=== PATIENT | male | born 1955 | race Caucasian/White ===

== ENCOUNTER 2017-06-06 02:03 | Emergency (ER) | payer MEDICARE ==
[~2017-06-06] VITALS: Ht 182.9 cm; Wt 174.5 kg
[~2017-06-06 02:03] MED LIST: ALLO100T30 PO; AMOX1TAB64 PO; CAPT50TA3 PO; DIAZ5TAB PO; ENOX40SY4 SQ; FURO40TA6 PO; GABA600T2 PO; HYDR-3240 PO; LISI40TA PO; OMEP-110 PO; OXYC-307 PO; POTA20TA14 PO; WARF2.5T73 PO; WARF5TAB PO; WARF7.5T6 PO
[2017-06-06] MEDS ORDERED: NAPR220C2 PO (02:46)
[2017-06-06] MEDS ORDERED: CHON400C PO (02:46)
[2017-06-06] MEDS ORDERED: VITA1CAP PO (02:46)
[2017-06-06] MEDS ORDERED: FENTANYL PF 100 MCG/2ML ONE (04:25)
[2017-06-06] MEDS ORDERED: FENTANYL PF 100 MCG/2ML IVPush ONE (04:30)
[2017-06-06 05:37] VITALS: BP 124/78
== END 2017-06-06 05:39 | disposition home or self-care (01) ==
LOC: ED 03:49
DX: S02.2XXA Fracture of nasal bones, initial encounter for closed fracture (principal); S16.1XXA Strain of muscle, fascia and tendon at neck level, initial encounter; S39.012A Strain of muscle, fascia and tendon of lower back, initial encounter; I10 Essential (primary) hypertension; E66.01 Morbid (severe) obesity due to excess calories; G35 Multiple sclerosis; W01.0XXA Fall on same level from slipping, tripping and stumbling without subsequent striking against object, initial encounter; Y93.89 Activity, other specified; Y92.098 Other place in other non-institutional residence as the place of occurrence of the external cause; Y99.8 Other external cause status; Z87.828 Personal history of other (healed) physical injury and trauma; Z79.01 Long term (current) use of anticoagulants; Z98.890 Other specified postprocedural states; Z86.718 Personal history of other venous thrombosis and embolism; Z68.43 Body mass index [BMI] 50.0-59.9, adult
CPT/HCPCS: 70450; 70486; 72125; 72131; 99284

== ENCOUNTER 2018-11-18 12:13 | Outpatient (CLI) | payer MEDICARE | END 2018-11-18 23:59 | disposition home or self-care (01) | LOC: RAD 12:13 | PROVIDERS: ATTEND Neurological Surgery | DX: M48.061 Spinal stenosis, lumbar region without neurogenic claudication (principal); M48.56XA Collapsed vertebra, not elsewhere classified, lumbar region, initial encounter for fracture; M48.54XA Collapsed vertebra, not elsewhere classified, thoracic region, initial encounter for fracture; M51.34 Other intervertebral disc degeneration, thoracic region; M51.36 Other intervertebral disc degeneration, lumbar region; M43.16 Spondylolisthesis, lumbar region; M25.78 Osteophyte, vertebrae; G89.29 Other chronic pain; I10 Essential (primary) hypertension; G35 Multiple sclerosis; Z72.89 Other problems related to lifestyle; Z79.01 Long term (current) use of anticoagulants; Z79.899 Other long term (current) drug therapy; Z88.8 Allergy status to other drugs, medicaments and biological substances; Z86.718 Personal history of other venous thrombosis and embolism; Z86.711 Personal history of pulmonary embolism; Z98.1 Arthrodesis status | CPT/HCPCS: 72050; 72072; 72110; 72141; 72146; 72148; 99156; 99157; J2250; J3010; J2310 ==